=== PATIENT | female | born 1955 | race Caucasian/White ===

== ENCOUNTER 2021-11-03 12:38 | Outpatient (CLI) | payer MEDICARE, MEDICAID ==
[2021-11-03] MEDS ORDERED: Magnevist 469MG/ML 20 ML VIAL ONE ×3 (13:29)
[2021-11-03 13:43] LABS: Estimated GFR-MDRD - POC Greater than 90
== END 2021-11-03 12:39 | disposition home or self-care (01) ==
LOC: CSHMRI 12:38
PROVIDERS: ATTEND Psychiatry & Neurology Neurology
DX: G35 Multiple sclerosis (principal); M47.814 Spondylosis without myelopathy or radiculopathy, thoracic region; M47.812 Spondylosis without myelopathy or radiculopathy, cervical region
CPT/HCPCS: 70553; 72156; 72157; 82565; A9579